=== PATIENT | female | born 1985 | race Caucasian/White ===

== ENCOUNTER 2019-07-05 09:55 | Inpatient (IN) | payer OTHER, SELFPAY ==
[2019-07-05] VITALS (51 sets, daily range): BP systolic 98–138; BP diastolic 53–86; PULSE 56–126; RESP 12–18; TEMP 36.2–36.7; O2SAT 94–100; BMI 32.6
--- NOTE | 2019-07-05 06:49 | HP_ITS ---
DATE OF SERVICE: 07/05/2019 HISTORY OF PRESENT ILLNESS: The patient is 33 years old, G2, P0-1-0-2, at 39 weeks gestation coming in for an elective repeat and tubal ligation. Her has been uncomplicated. She is feeling normal movement, occasional contractions, no vaginal bleeding, and no leakage of fluid. MEDICAL HISTORY: Negative. CURRENT MEDICATIONS: vitamin and recently was on baby aspirin. ALLERGIES: NO KNOWN DRUG ALLERGIES. SURGICAL HISTORY: x1. SOCIAL HISTORY: Negative for tobacco, alcohol, or drug use. 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 OB HISTORY: She had at 32 weeks with twins due to preeclampsia and those babies weighed 3.6 and 3.9 and were both girls. REVIEW OF SYSTEMS: Negative. PHYSICAL EXAMINATION: VITAL SIGNS: Her weight is 196, blood pressure 118/79. GENERAL: No apparent distress. HEART: Regular rate and rhythm. LUNGS: Clear to auscultation. ABDOMEN: Gravid, soft, nontender, nondistended. EXTREMITIES: Nontender with 1+ edema. PELVIS: Cervix on July 02 is close, thick, -3 station. ASSESSMENT AND PLAN: 1. G2, P0-1-0-2, at 39 weeks gestation with history of prior . She has expressed a desire throughout her for repeat . So, plan is to proceed with repeat . 2. status is reassuring. 3. Desires sterilization, we are planning to do a tubal ligation along with her . 4. GBS is negative. D I MT: Yanely
--- NOTE | 2019-07-05 10:25 | LDADM ---
This patient, Jacquie Morales, was admitted to Labor/Delivery/Recovery 119 on 07/05/19 at 09:55. Plans for labor, pain management and were discussed with patient. Patient/family oriented to hospital policies and general routines including ID bracelet, bed and alarms, visiting hours, pain management, procedures, bathroom and other care routines, personal items, smoking policy, room service/diet and guest tray routines, security routines, and visiting hours. Patient/Family are encouraged to report perceived risks to care and to ask questions if they do not understand what they are told or what they should do. See OBIX for further documentation.
[2019-07-05] MEDS: LACTATED RINGERS 1,000 ML 999 ML IV CONT (10:45)
--- NOTE | 2019-07-05 11:48 | WPDANESEPPF ---
Anes - Initial Pre Proc Eval Procedure: Operation Date: 07/05/19 12:00 Proposed Procedures p Repeat Section with Tubal Ligation - Graciela Mcgovern MD Date/Time: 07/05/19 11:48 Surgeon: Graciela Mcgovern MD Pre Op Diagnosis: scheduled c/s Patient Data Age: 33 Gender: F Height: 5 ft 5 in Weight: 89 kg Last Vital Signs Pulse 78 07/05/19 10:48 BP 122/82 07/05/19 10:48 Allergies Allergy/AdvReac Type Severity Reaction Status Date / Time No Known Allergies Allergy Unverified 01/10/12 15:10 Home Medications Medication Instructions Recorded Confirmed Type aspirin [Adult Low Dose Aspirin] 81 mg PO DAILY 06/12/19 06/12/19 History [id number] acid 1 tablet PO DAILY 06/12/19 06/12/19 History [ Multi] Patient hx anesthesia problems: none Family hx anesthesia problems: none PMFSH Family History Family History Mother Family history of malignant neoplasm of breast in first degree relative Hypertension Family history of elevated blood lipids Social History Social History Smoking status: Never smoker Alcohol intake: current Gender identity (if verbalized by the patient): Female Spiritual care concerns: No Anes - Eval Final PreProcedure Day of Procedure 07/05/19 11:48 Patient weight: overweight Heart: regular rate and rhythm Lungs: clear to auscultation Airway: Mallampati scale class II Neurological: alert and oriented Last oral intake: >/= 8 hours ASA classification: II Emergent: no Anesthetic plan: proceed Anesthesia type and monitoring: regional spinal and standard monitoring Informed Consent: The patient's anesthetic plan and its attendant risks and benefits were discussed with the patient/family/POA. Questions were solicited and answers provided to the satisfaction of the patient/family/POA.
--- NOTE | 2019-07-05 12:03 | WPDHPUPDATE1 ---
History and Physical Update Update Date/Time: 07/05/19 12:03 History and Physical has been reviewed, including an updated exam of the patient. There are NO changes in the patient's condition. Risks, benefits, and alternatives have been discussed and questions answered. Patient agrees to proceed with procedure.
--- NOTE | 2019-07-05 12:08 | PM.OP ---
Procedure Note - Brief Procedure Note - Brief Date of procedure: 07/05/19 Pre-op diagnosis: scheduled c/s desires sterilization Post-op diagnosis: same Procedure performed: Repeat LTCS + BTL Anesthesia: spinal Surgeon: Graciela cMgovern MD Estimated blood loss (mL): 615 Drains: Yes ([place]) Packing: No Pathology: none sent Complications: No immediate complications Condition: stable Disposition: floor Findings: Male , cephalic, Apgars 9/9, weight 8# 2oz, normal uterus, tubes, and ovaries
[2019-07-05] MEDS: ONDANSETRON INJ 4 MG/2 ML VIAL IV PUSH ×2 (15:44→18:28)
--- NOTE | 2019-07-05 17:25 | OP_ITS ---
DATE OF PROCEDURE: 07/05/2019 PREOPERATIVE DIAGNOSES: Intrauterine at 39 weeks with prior section, desires sterilization. POSTOPERATIVE DIAGNOSES: Intrauterine at 39 weeks with prior section, desires sterilization. PROCEDURE PERFORMED: Repeat low transverse section and bilateral tubal ligation. ANESTHESIA: Spinal. ESTIMATED BLOOD LOSS: 615 mL. COMPLICATIONS: None. FINDINGS: Male infant, cephalic presentation, weight 8 pounds 2 ounces. Apgars 9 and 9. Normal uterus, tubes, and ovaries. INDICATIONS: 33-year-old, G2, P 0-1-0-2 at 39 weeks gestation, had expressed a desire throughout her for repeat as well as tubal ligation and continued desire for both procedures today. DESCRIPTION OF PROCEDURE: For the procedure, she was taken to the operating room where spinal anesthesia was obtained and found to be adequate. She was prepared and draped in the normal sterile fashion in the dorsal supine position with a leftward tilt. A Pfannenstiel skin incision was made over her prior incision and extended to the underlying layer of fascia with the scalpel. The fascia was incised in the midline with a scalpel and extended laterally with the Gan scissors. The underlying rectus muscles were dissected off bluntly and sharply and in the midline. The peritoneum was entered bluntly and then extended inferiorly and superiorly with good visualization of the bladder. The bladder blade was inserted. The vesicouterine peritoneum was tented up and entered sharply with Metzenbaum scissors and the bladder flap was created sharply. The bladder blade was reinserted. The lower uterine segment was incised in a transverse fashion with the scalpel. The incision was digitally stretched in a cephalocaudad direction. Membranes were ruptured with clear fluid noted. The infant's head was delivered atraumatically, and the shoulders and body were delivered easily. The cord was clamped x2 and cut, and the infant was passed to the waiting nurse. Cord gas and cord blood were obtained. The placenta was extracted using gentle traction on the cord. The uterus did invert and was easily replaced by placing fist on the inverted portion and pushing that back inside the uterus. Her uterus was boggy for a minute or so, but did respond quickly to Pitocin. The uterine incision was then closed using 0 Vicryl in a running locked fashion. A 2nd layer of the same suture was used for hemostasis and reinforcement. Attention was then turned to the fallopian tubes. The right fallopian tube was grasped in the mid isthmic portion. A defect was made in the underlying mesosalpinx with the Bovie. Two free ties of 0 plain gut were placed and then the intervening segment of tube was excised. The same procedure was performed on the left fallopian tube. Excellent hemostasis was assured. The uterine incision was reinspected and found to be hemostatic. The uterus was returned to the abdomen. The gutters were cleared of all clots and debris. The uterine incision was inspected once again. There were couple of bleeding points, which were easily controlled using 0 Vicryl evaafe-oj-gvxvo sutures. The rectus muscles were reapproximated using a 0 Vicryl scywnx-al-fvvef suture. The rectus muscles were inspected. Any bleeding points were cauterized. The fascia was then closed using 0 Vicryl in a running fashion. The subcutaneous tissue was irrigated. All bleeding points were cauterized and the skin was closed using 4-0 Monocryl in subcuticular fashion. She tolerated the procedure well. Sponge, lap, needle, and instrument counts were correct x2, and she was taken to the recovery room in stable condition. Fiona I MT: Yanely
--- NOTE | 2019-07-05 18:18 | OBPPTRN ---
Patient transferred to post room #280 via stretcher. Support person present. Oriented to unit, room, information board, rooming in, admission packet and security measures. Patient verbalizes understanding.
[2019-07-05] MEDS: DEXTROSE 5%/0.45% SOD CHL 1,000 ML 125 ML IV CONT (21:07)
[2019-07-05] MEDS: SIMETHICONE 80 MG TAB.CHEW PO (23:28)
[2019-07-06] MEDS: IBUPROFEN 600 MG TABLET PO ×4 (01:30→22:23)
[2019-07-06 04:10] VITALS: BP 94/53; PULSE 68; RESP 16; TEMP 36.3; O2SAT 99
[2019-07-06 04:55] LABS: Basophils Percent Auto 0.1 % (0.2-1.2); Eosinophils Percent Auto 0.2 % (0-4.4); Hematocrit 30.9 % (37.0-47.0); Hemoglobin 10.5 g/dL (12.0-15.0); Immature Granulocyte Absolute 0.05 K/mm3 (0.00-0.031); Immature Granulocyte Percent A 0.5 % (0-0.5); Lymphocytes Absolute Auto 0.83 K/mm3 (0.9-3.2); Lymphocytes Percent Auto 7.6 % (18.3-44.2); Mean Corpuscular Hemoglobin 31.7 pg (26-34); Mean Corpuscular Volume 93.4 fl (80-100); Mean Platelet Volume 9.4 fl (7.4-10.4); Monocytes Absolute Auto 0.8 K/mm3 (0.1-0.6); Monocytes Percent Auto 7.2 % (2.6-8.5); Neutrophils Absolute Auto 9.2 K/mm3 (1.3-6.7); Neutrophils Percent Auto 84.4 % (45.5-73.1); Platelet Count Result 124 k/mm3 (150-375); Red Blood Count 3.31 M/mm3 (4.2-5.4); Red Cell Distribution Width 12.5 % (11.5-14.5); White Blood Count 10.9 K/mm3 (4.5-10.0)
[2019-07-06 08:00] VITALS: BP 123/81; PULSE 72; RESP 18; TEMP 37.4; O2SAT 99
--- NOTE | 2019-07-06 08:01 | P.PNOB_ITS ---
OB - PN: Subj Subjective Date/time seen: 07/06/19 08:01 Patient comments: no complaints, pain well controlled, incisional pain, tolerating diet, flatus present and other (Lochia similar to menses) baby status: doing well OB - PN: Obj Data Labs CBC & Chem 7: 07/06/19 04:37 Labs: Laboratory Results - last 24 hr 07/06/19 04:37 WBC 10.9 H RBC 3.31 L Hgb 10.5 L Hct 30.9 L MCV 93.4 MCH 31.7 MCHC 34.0 RDW 12.5 Plt Count 124 L MPV 9.4 Immature Gran % (Auto) 0.5 Neut % (Auto) 84.4 H Lymph % (Auto) 7.6 L [place] % (Auto) 7.2 Eos % (Auto) 0.2 Baso % (Auto) 0.1 L Lymph # (Auto) 0.83 L [place] # (Auto) 0.8 H Eos # (Auto) 0.0 Baso # (Auto) 0.0 Abs Immat Gran (auto) 0.05 H Absolute Neuts (auto) 9.2 H Absolute Nucleated RBC 0.0 Nucleated RBC % 0.0 OB - PN A/P Plan day: 1 (s/p C section, doing well) Plan: routine care Time Spent With Patient Time: Total time spent is greater than 50% in coordination of care (as docu mented) at patient's floor/unit and/or counseling patient: Exam Const: General: no acute distress Resp: Auscultation: clear to auscultation bilaterally Cardio: Rate: regular rate Rhythm: regular rhythm GI: Inspection: non-distended, incision (Intact without erythema, drainage, or induration) and other (Fundus firm and nontender at umbilicus) GI Palp: Yes abdominal tenderness (appropriate ) and Yes Soft to palpation Extrem: General: no edema
[2019-07-06] MEDS: SIMETHICONE 80 MG TAB.CHEW PO ×5 (08:35→22:24)
[2019-07-06] MEDS: DOCUSATE SODIUM 100 MG CAPSULE PO ×2 (08:35→15:26)
[2019-07-06] MEDS: MULTIVIT/MIN/PREN/FOL AC/IRON TABLET 1 TAB PO (08:35)
--- NOTE | 2019-07-06 09:30 | WPDANLDPN2 ---
Anes-Prog Note L&D Date/Time: 07/06/19 09:30 Comfortable throughout: section Neuraxial method: spinal Epidural/Spinal procedure site: clean & non-tender Neuro status: Neuro function grossly intact. Cardiovascular status: normal Respiratory status: normal Airway patency: baseline Mental status: baseline Post-Op hydration status: normal Vital Signs: Last Vital Signs Temp 37.4 C 07/06/19 08:00 Pulse 72 07/06/19 08:00 Resp 18 07/06/19 08:00 BP 123/81 07/06/19 08:00 Pulse Ox 99 07/06/19 08:00 I/O: Intake & Output 07/05/19 07/06/19 07/06/19 23:59 07:59 15:59 Intake Total 1300 1125 Output Total 1825 800 Balance -525 325 Post-procedural complaints: none Patient feedback: Patient satisfied with anesthetic care.
--- NOTE | 2019-07-06 09:30 | WPDANLDNPN2 ---
Anes-Prog Note L&D-Neuraxial Date/Time: 07/06/19 09:30 Neuraxial medications: intrathecal PF morphine Opiod-related complaints: none Patient feedback: Patient satisfied with post-operative pain management.
[2019-07-06 11:40] VITALS: BP 106/71; PULSE 69; RESP 18; TEMP 36.4; O2SAT 97
[2019-07-06 21:00] VITALS: BP 130/72; PULSE 65; RESP 16; TEMP 36.2; O2SAT 100
[2019-07-07] MEDS: SIMETHICONE 80 MG TAB.CHEW PO ×6 (00:30→23:20)
--- NOTE | 2019-07-07 07:26 | PM.OBPNVD ---
OB - PN: Subj Subjective Date/time seen: 07/07/19 07:26 OB - PN: Obj Data Labs CBC & Chem 7: 07/06/19 04:37 OB - PN A/P Time Spent With Patient Time: Total time spent is greater than 50% in coordination of care (as documented) at patient's floor/unit and/or counseling patient: Review of Systems Review of Systems: All systems reviewed & are unremarkable except as noted in HPI and below Exam Const: General: comfortable Psych: Appearance: grossly normal Affect: normal affect Attitude: cooperative Judgement: Good judgement present (Psych)
[2019-07-07 09:00] VITALS: BP 127/87; PULSE 74; RESP 18; TEMP 36.2; O2SAT 100
[2019-07-07] MEDS: DOCUSATE SODIUM 100 MG CAPSULE PO (09:00)
[2019-07-07] MEDS: MULTIVIT/MIN/PREN/FOL AC/IRON TABLET 1 TAB PO (09:00)
[2019-07-07] MEDS: IBUPROFEN 600 MG TABLET PO ×3 (09:01→23:21)
--- NOTE | 2019-07-07 10:51 | PC.NURSE ---
On 07/07/19, the student, [SN Ric ], provided care and completed [facility] documentation on this patient. I have reviewed the student's documentation and agree with the findings.
--- NOTE | 2019-07-07 14:48 | PC.NURSE ---
Patient viewed the discharge video Mother & Baby Care, The First Two Weeks . Patient was given the opportunity and encouraged to ask questions. Patient verbalized understanding of information shared and has been given the mother/baby guide for home reference.
[2019-07-07 20:15] VITALS: BP 121/81; PULSE 78; RESP 16; TEMP 37.1; O2SAT 100
[2019-07-08 07:20] VITALS: BP 119/78; PULSE 76; RESP 16; TEMP 36.9; O2SAT 100
--- NOTE | 2019-07-08 07:49 | PM.OBPNVD ---
OB - PN: Subj Subjective Date/time seen: 07/08/19 07:49 Patient comments: no complaints, pain well controlled, tolerating diet, flatus present and other (Lochia less than menses. Ambulating and voiding without problems) baby status: doing well OB - PN: Obj Data Labs CBC & Chem 7: 07/06/19 04:37 OB - PN A/P Plan day: 3 (s/p section, doing well and ready to be discharged home) Plan: routine care, discharge home and other (Follow up in office in 1 week) Time Spent With Patient Time: Total time spent is greater than 50% in coordination of care (as documented) at patient's floor/unit and/or counseling patient: Exam Const: General: no acute distress Resp: Auscultation: clear to auscultation bilaterally Cardio: Rate: regular rate Rhythm: regular rhythm GI: Inspection: non-distended, incision (Intact without erythema, drainage, or induration) and other (Fundus firm and nontender below umbilicus) GI Palp: Yes abdominal tenderness (appropriate) and Yes Soft to palpation Extrem: General: no edema
[2019-07-08] MEDS: SIMETHICONE 80 MG TAB.CHEW PO (07:58)
[2019-07-08] MEDS: IBUPROFEN 600 MG TABLET PO (07:59)
[2019-07-08] MEDS: MULTIVIT/MIN/PREN/FOL AC/IRON TABLET 1 TAB PO (07:59)
[2019-07-08] MEDS: DOCUSATE SODIUM 100 MG CAPSULE PO (08:00)
--- NOTE | 2019-07-08 11:00 | PC.NURSE ---
Mother is able to independently latch infant with appropriate positioning/alignment. She denies any nipple discomfort, is feeding as required and waking to feed if needed. has had 8 effective feedings in the past 24 hours, and is currently meeting outcomes for weight, output, jaundice and feeding frequencies. Mother states she feels confident to continue effective at home. Reviewed transition to breast milk, signs of adequate intake, and engorgement/relief. Instructed to call ICP if intake/output less than required. Reviewed regular medications mother is taking. Information provided per [facility]. Reviewed community resources on the [facility] website and in the Mom/Baby guide. Information on outpatient services provided. Mother has no further questions at this time.
--- NOTE | 2019-07-08 18:24 | DS_ITS ---
DATE OF DISCHARGE: 07/08/2019 ADMISSION DIAGNOSES: Thirty-nine week intrauterine with history of prior and desires sterilization. DISCHARGE DIAGNOSES: Status post repeat low-transverse section and bilateral tubal ligation. DISCHARGE MEDICATIONS: Include vitamin, ibuprofen, and [place]. FOLLOWUP: Followup appointment is already scheduled in the office for the following Friday. HOSPITAL COURSE: A 33-year-old, G2, P0-1-0-2, who had a history of a due to preeclampsia with twins, had expressed a desire throughout her for repeat and tubal ligation. She was admitted on the morning of July 05 for the scheduled , which was uneventful. Her postoperative course has also been uneventful. She is meeting all postoperative milestones. She is . Her male is doing well with no medical problems apparent, and she is wanting to be discharged home today, so she will be sent home with the followup and medications as noted above. Fiona I MT: Yanely
== END 2019-07-08 12:21 | disposition home or self-care (01) | DRG 785 ==
LOC: ANHLDR 09:59 → ANHOB2 15:56
PROVIDERS: Admitting Provider Obstetrics & Gynecology; PCP Family Medicine; Visit Provider Obstetrics & Gynecology
PROC: 10D00Z1 Extraction of Products of Conception, Low, Open Approach (ICD-10-PCS; CPT 59514; principal; 2019-07-05 12:00)
DX: O34.211 Maternal care for low transverse scar from previous cesarean delivery (principal); Z37.0 Single live birth; Z3A.39 39 weeks gestation of pregnancy; Z30.2 Encounter for sterilization
CPT/HCPCS: 36415; 85025; 88302; A9270; J0131; J2274; J2370; J2405; J2590; J7120

== ENCOUNTER 2025-03-03 15:27 | Outpatient (CLI) | payer OTHER, SELFPAY ==
[2025-03-03 16:31] LABS: Thyroid Stimulating Hormone Reflex 1.270 uIU/mL (0.465-4.68)
--- OUTSIDE RECORDS SUMMARY | 2025-03-03 17:34 | XMS_ITS | Data Portability ---
Author Organization [place] [facility] [address] [place] [address] Assessment Encounter Date Assessment Date Assessment LastModified by Organization Details LastModified Time 07/03/2023 07/03/2023 plantar wart left foot Discussed etiology with patient-and treatment options such as chemical burning freezing and excision Patient opted for excision please see procedure note -Dressing changes daily with 2 fibrotic and Band-Aid patient made aware that the first few days up to a week can have heavier type bleeding -Patient instructed to watch for signs of infection such as increased pain purulent drainage redness swelling malodor. If these occur to call clinic immediately No pools or hot tubs x 2 weeks Activity as tolerated however-cleanin g the area following any exercise/ heavy perspiration -Return to clinic in 2 weeks Not available 07/03/2023 12:51:48 07/17/2023 07/17/2023 Plantar wart left - Excision sites healing as expected -No lesion present to area after debridement - Allow any remaining scab to fall off naturally - Discontinue dressing changes - Activity as tolerated -Patient is going on vacation in a week and a half and would like to wait to have any intervention to the new wart on the left hallux -Patient will schedule excision of the L1 warts when she is back from her trip Not available 07/17/2023 12:33:28 Plan of Treatment Reminders Order Date Submit Date Provider Last Modified By Organization Details Last Modified Time Details Appointments None record ed. Lab None record ed. Referral None record ed. Procedures None record ed. Surgeries None record ed. Imaging None record ed. Medication Orders None record ed. Patient TargetsNo targets recorded. Patient InstructionsNo instructions recorded. Reason for Referral None Reported. Results Created Date Observation Date Name Description Value Unit Range Abnormal Flag Note LastModifiedBy Organization Detail LastModifiedTime Result Notes None recorded. Procedures Surgical History Date Name Laterality Status Provider Name and Address Organization Details Recorded Time 26188/46887 Excision of Wart completed Robret Foreman [facility] [place], [phone] 07/03/2023 12:47:37 section completed Patience Espinal [facility] 07/03/2023 12:09:08 Imaging Results None recorded. Procedure Notes None recorded. Medical Equipment None Reported. Allergies No known drug allergies Medications Name Sig Start Date Stop Date Status Note LastModified by Organization Details LastModified Time amoxicillin 500 mg capsule TAKE 1 CAPSULE BY MOUTH TWICE A DAY FOR 10 DAYS 07/11 completed Not Available Not Available Not Available doxycycline hyclate 100 mg capsule TAKE 1 CAPSULE BY MOUTH TWICE A DAY FOR 7 DAYS active Not Available Not Available No t Available Slynd 4 mg (28) tablet TAKE 1 TABLET BY MOUTH EVERY DAY 07/11 completed Not Available Not Available Not Available Vitals Date Recorded Body height Provider Name an d Address Organization Details Last Updated DateTime 07/03/2023 165.1 cm Patience Espinal [facility] 07/03/2023 12:08:12 Date Recorded Body height Body mass index (BMI) Body weight Provider Name and Address Organization Details Last Updated DateTime 07/17/2023 165.1 cm 30 kg/m2 57004.63 g Zena Vail [facility] 07/17/2023 11:29:33 Social History Question Answer Notes LastModified by Organizat ion Details LastModified Time Tobacco Smoking Status Never Smoker Patience Espinal alessia [facility] 07/03/2023 12:08:47 Size Of Shoes 10 Information not available 07/03/2023 Sex: Unknown Functional Status Question Answer Note LastModified by Organizat ion Details LastModified Time Do you use any illicit or recreational drugs? No [email or web address] Information not available 07/17/2023 Do you or have you ever used any other forms of tobacco or nicotine? No [email or web address] Information not available 07/17/2023 What is your level of alcohol consumption? Moderate Information not available 07/03/2023 What is your exercise level? None Information not available 07/03/2023 Mental Status None recorded. Family History Relationship Description Onset Age of this Age Resolved Age Notes LastModified by Organization Details LastModified Time Mother Malignant neoplastic disease Not available 2023 12:08:37 Medical History Condition Response Tuberculosis or TB N Heart Problems N Ulcers on Legs or Feet N Coronary Artery Disease N HIV or AIDS N Seizure Disorder N Gout N High Blood Pressure N Clot in Lung or Pulmonary Embolism N Menopause N Lung Condition N Phlebitis or Venous Blood Clot N Migraines N Depression N Pacemaker N Anemia N Back Pain N Neurologic Disease N Sciatica N Heart Attack ([place]) N Diabetes N Urinary Tract Infections N Anxiety Disorder N Bleeding Disorder N Arthritis N Abuse of Alcohol or Drugs N Back injury N Ear Problems N Cancer N Dementia N Eye Problems N Stroke N Stomach Problems N Peripheral Vascular Disease N Sinus Conditions N Broken Bone N Thyroid Disorder N High Cholesterol N Hepatitis N Liver Disease N Heart Disease N Rheumatoid Arthritis N Rash N Osteoporosis N Kidney Disease N Gynecological HistoryNo gynecological history recorded. Obstetrics History GPAL:G 0 P 0 0 0 0 Past Encounters Encounter ID Performer Location Encounter Start Date Encounter Closed Date Diagnosis/Indication Diagnosis SNOMED-CT Code Diagnosis ICD10 Code Diagnosis IMO Codes [facility] [id number] [facility] [address] [place] [address] 5 07/03/2023 11:48:09 07/03/2023 12:23:36 Plantar wart of left foot [id number] B07.0 [id number] [facility] [address] [place] [address] 07/17/2023 11:22:48 07/17/2023 11:40:49 Plantar wart of left foot [id number] B07.0 Health Concerns Section Related Observation LastModified by Organization Detai ls LastModified Time None Recorded Concern Status LastModified by Organization Details LastModified Time None Recorded Advance Directives Directive None Recorded Payers Insurance Date Sequence Insurance Name Policy Number Policy Vyas Covered Member ID Vyas Member ID Guarantor Name 07/14/2023 1 [facility] Jacquie Morales [id number] Jacquie Morales Notes Date Note Type Note Provider Name and Address Organization Details Recorded Time 07/03/2023 text/html Wart--Reported b y PatientHPIFor location, patient reportsfoot,left, andplantar. For nature, patient reportsstabbingandsha rp. For duration, patient reports___ weeksand___ months. For onset, patient reportsnoticed a small bump but has been staying the same. For alleviating factors, patient reportsnot putting pressure on itandbandaids(pt came to clinic with wart pads that helped alleviate pain). For aggravating factors, patient reportspressure. For treatment, patient reportsusing 's wart remover,picking at it at home, andfiling it. Robert Foreman [address] [place] [address], [phone] [place] [address] 07/03/2023 12:52:23 07/17/2023 text/html Wart--Reported b y PatientHPIFor location, patient reportsfoot,left, andplantar. For nature, patient reportsstabbingandsha rp. For duration, patient reports___ weeksand___ months. For onset, patient reportsnoticed a small bump but has been staying the same. For alleviating factors, patient reportsnot putting pressure on itandbandaids(pt came to clinic with wart pads that helped alleviate pain). For aggravating factors, patient reportspressure. For treatment, patient reportsusing 's wart remover,picking at it at home, andfiling it.patient indicates she has a new wart that formed on her L1. Wart removal 2 weeks ago. Patient did have a complication with infection to the midfoot region however we will prescribe antibiotics and this is resolved at this time she states does not have any pain and the wounds are closed Robert sienna [address] [place] [address], [phone] 07/17/2023 12:33:54 OBGyn Episode No OBEpisode recorded.
--- OUTSIDE RECORDS SUMMARY | 2025-03-03 17:34 | XMS_ITS | Clinical Summary ---
Author Organization [facility] Address [address] [place] [id number] Care Team Providers Care Waistline Joiner Overlock Name Role Phone Demetrio Lee MD Unavailable [phone] Ryan Frost MD Primary Care Provider [phone] Allergies No known active allergies Medications aspirin 81 mg chewable tablet Take 81 mg by mouth daily Active PNV no.95/ferrous fum/folic ac ( ORAL)Indication s: Take 1 tablet by mouth daily Active mv,calcium,min/ iron/folic/vitK (ONE-A-DAY WOMEN'S COMPLETE ORAL) Take 1 capsule by mouth daily Active Active Problems Problem Noted Date Diagnosed Date Abnormal quad screen 01/29/2019 Overview (01/29/2019): 01/22/2019 Screen positive for Open Spina bifida, negative for Down syndrome, negative for Trisomy 18 Supervision of high-risk , unspecified trimester 01/29/2019 Overview (02/16/2019): [x] Co-management vs. [] Full [facility] Care; Referring Provider: Demetrio Lee MD [phone] [] Dating Criteria: [x] Labs: Rh [A+] , Ab [neg], Rubella [Imm], HIV [NR], HepBSAg [neg], RPR [NR], GC/CT [neg/neg] [x] Genetic Screening: Carrier Screening 12/21/18: negative. Sequential 1 12/21/18: Down Syndrome <1 in [address]; Trisomy 18 <1 in [address]. Sequential 2 01/22/19: Screen positive for open spina bifida; screen negative for down syndrome, screen negative for trisomy 18 [x] CBC/Hgb electrophoresis (if indicated) H/H [12/22/18] 34.9/12.0, plat 223 [] Early 1hr GTT (if indicated) [x] UCx 12/21/18 no growth [x] Pap: 04/17/18 negative [] LD ASA (if indicated) starting at 12 weeks [] EPDS ; PNB[facility] referral (if indicated) 2nd Tri Labs: [] Anatomy ultrasound [] CBC/1hr gtt at 24-28wks: [] Flu Shot (Feb-May) [] Tdap (27-36wks) [] Rhogam at 28 wks (if Rh neg): 3rd Tri Labs: [] CBC/HIV/RPR/T&S [] GBS [] GC/CT (if indicated) Counselling [] MOD: [] Place of delivery: [] MOC: [x] Method of feeding: [] Copy Lathe Operator: [] PP Depression Discussed, EPDS History of abnormal cervical Pap smear 9 Hx of preeclampsia, prior pr egnancy, currently , unspecified trimester 01/29/2019 Overview (01/29/2019): - taking baby ASA Resolved Problems Problem Noted Date Diagnosed Date Resolved Date , twins 06/16/2014 01/29/2019 Surgical History Surgery Date Site/Laterality Comments SECTION Medical History Medical History Date Comments Preeclampsia Abnormal Pap smear of cervix Family History Medical History Relation Name Comments Breast cancer Mother Bipolar disorder Other Breast cancer Other Hypertension Other Breast cancer Paternal Grandmother Relation Name Status Comments Mother Other Paternal Grandmother Social History Tobacco Use Types Packs/Day Years Used Date Smoking Tobacco: Never Smokeless Tobacco: Never Tobacco Cessation:Counseling Given: Not Answered Alcohol Use Standard Drinks/Week Comments Not Currently 0 (1 standard drink = 0.6 oz pur e alcohol) Comments No Sex and Gender Information Value Date Recorded Sex Assigned at Not on file 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 Gender Identity Female 02/19/2019 9:30 AM CDT Sexual Orientation Not on file Occupation Industry Job Start Date Job End Date Not on file Not on file Not on file Not on file Obstetrics History Para Term AB IAB SAB Ectopic Multiple Livin g Live Births 2 1 0 1 0 0 0 0 1 2 2 Date Outcome GA Total Labor Labor/2nd/3rd Weight Sex Type Anes PTL Lorraine A1 A5 Name Clin 2014 32w 0d 1.531 kg (3 lb 6 oz) F CS-LT ranv N Living Complications:Pre eclampsia 2014 32w 0d 1.616 kg (3 lb 9 oz) F CS-LT ranv N Living Complications:Pre eclampsia Last Filed Vital Signs Vital Sign Reading Time Taken Comments Blood Pressure 122/68 08/19/2022 5:21 PM CDT Pulse 88 08/19/2022 5:21 PM CDT Temperature 36.2 C (97.1 F) 08/19/2022 5:21 PM CDT Respiratory Rate 19 08/19/2022 5:21 PM CDT Oxygen Saturation 100% 08/19/2022 5:21 PM CDT Inhaled Oxygen Concentration - - Weight 89.5 kg (197 lb 6.4 oz) 08/19/2022 5:21 P M CDT Height 165.1 cm (5' 5) 08/19/2022 5:21 PM CDT Body Mass Index 32.85 08/19/2022 5:21 PM CDT Plan of Treatment Health Maintenance Due Date Last Done Comments Cervical Cancer Screening 1986 Depression Screening 1986 Hepatitis C Screening 1986 Varicella Vaccines (1 of 2 - 13+ 2-dose series) 10/30/1999 Hepatitis B Screening 2004 Regular Well Visit/Exam 18-64 2004 HPV Vaccines (1 - 3-dose SCD M series) 2013 DTaP/Tdap/Td Vaccine (2 - Td or Tdap) 09/27/2024 09/27/2014 Covid-19 Vaccine (3 - 2024-2 6 season) 2025 07/26/2020, 07/06/2020 Influenza Vaccine (#1) 2025 2, 03/14/2021 Pneumococcal vaccine <65 Aged Out No longer eligible based on patient's age to complete this topic Insurance [facility] Address: [address] [address] [place] [address] [facility] Address: [address] [address] [place] [address] [facility]O Address: [address] [address] [place] [address] Care Teams Waistline Joiner Overlock Relationship Specialty Start Date End Date Ryan Frost MD [address] [place] [address] PCP - General Family Medicine 04/22/22 Demetrio Lee MD [address] [place] [address] Referring Physician Obstetrics and Gynecology 01/27/19
== END 2025-03-03 15:28 | disposition home or self-care (01) ==
LOC: ANHLAB 15:28
PROVIDERS: PCP Family Medicine; Visit Provider Nurse Practitioner Obstetrics & Gynecology
DX: N93.9 Abnormal uterine and vaginal bleeding, unspecified (principal)
CPT/HCPCS: 36415; 84443

== ENCOUNTER 2025-03-23 13:21 | Outpatient (CLI) | payer OTHER, SELFPAY ==
--- NOTE | ~2025-03-23 | US_ITS ---
EXAMINATION: US pelvic complete w TV, 03/23/2025 13:23 CDT HISTORY: N93.9 - Abnormal uterine and vaginal bleeding, unspecified Comparison: None Technique: Green-scale and color Doppler images were obtained. Findings: Uterus: Uterus anteverted 8.4 x 4.2 x 6.7 cm. . Endometrium 1.4 cm. Right Ovary:Right ovary 2.7 x 3.6 x 2.7 cm, no adnexal mass, normal flow. Left Ovary: Left ovary 3.2 x 1.4 x 2.5 cm, no adnexal mass, normal flow. Free Fluid: None Impression: 1. No etiology to explain the patient's symptoms Reviewed, dictated and finalized at location P. Impression: 1. No etiology to explain the patient's symptoms
== END 2025-03-23 13:22 | disposition home or self-care (01) ==
LOC: MICIMG 13:22
PROVIDERS: PCP Family Medicine; Visit Provider Nurse Practitioner Obstetrics & Gynecology
DX: N93.9 Abnormal uterine and vaginal bleeding, unspecified (principal)
CPT/HCPCS: 76830; 76856

== ENCOUNTER 2025-05-25 03:44 | Day surgery (SDC) | payer OTHER, SELFPAY ==
[2025-05-23 06:50] VITALS: BP 147/93; PULSE 88; RESP 16; TEMP 36.5; O2SAT 98
--- NOTE | 2025-05-23 08:00 | SUR.PREOP ---
[facility] has started construction of its new state of the art ER which will open Spring 2026. With this, we anticipate parking may be a challenge for some our surgical patients and families. Parking spaces are limited but are available for all Surgical, obstetrics, and ER patients sharing this lot. If you arrive and find you are having a hard time finding a parking space, please note that we understand the challenges, please drive around the hospital and park near Hospital Entrance 1. When you enter this entrance, you can ask a volunteer to direct or take you back to the surgical waiting area to check in. We appreciate everyone?s understanding of these expected challenges while we build for your future. Report to the Outpatient Waiting Room, entrance under the green pavilion located off [address], at time _0600_ on date _05/25/25_. Planned Procedure Time: _0730_.? Time changes happen often and if your time is changed the preop area will call you the afternoon before. - You and your visitor will be asked to self-screen and do not enter if you have any COVID symptoms. Please call surgeon if you need to reschedule. - A mask is optional within the hospital at this time. Patients may have clear liquids (water, carbonated beverages, clear teas, apple juice) until 3 hours (0430) prior to surgery with a maximum of 20 ounces. - No food from midnight until time of surgery and no smoking, or chewing tobacco (or any form of nicotine). No chewing gum, candy or mints. Take only the following medications with a SIP of water on the morning of surgery: _NA_ DO NOT STOP ANY OF YOUR OTHER PRESCRIPTION MEDICATIONS PRIOR TO SURGERY EXCEPT THE FOLLOWING Hold all vitamins and supplements for 3 days per anesthesiologist. Medications to discontinue per physician __NA__ Date to take last dose_NA_ Please no make-up, nail arabic, hairspray, perfume, deodorant, or body powder the day of surgery.? No jewelry (including any body piercings) or valuables the day of surgery, leave them at home.? Please take a shower or bath the night before, or the morning of, surgery with an antibacterial soap.? Wear comfortable, loose fitting clothing.? - Jewelry must be removed prior to entering the operating room.? Rings and piercings that are not removed may be cut off. - The hospital will not accept responsibility for valuables.? - Please leave all valuables, including medications, at home the day of surgery. If you are going home after surgery, a licensed front end driver must drive you home.? - NO public transportation without another adult if you receive anesthesia. - We recommend that an adult stay with you for 24 hours following discharge. - We also recommend that you do not drive, make important decision, drink alcoholic beverages, or take any drugs that were not prescribed by your health care provider for at least 24 hours after your discharge time. Follow any additional instructions given to you from your surgeon. Telephone instructions given to _JULIO_and asked if any additional questions and then verbalized understanding. Patient advised to call surgeon office or pre surgery nurse liaison [phone] if any additional questions.
[2025-05-23 08:07] VITALS: BMI 33.3
--- OUTSIDE RECORDS SUMMARY | 2025-05-25 03:46 | XMS_ITS | Clinical Summary ---
Author Organization [facility] Address [address] [place] [id number] Care Team Providers Care Grocery Store Bagger Name Role Phone Demetrio Lee MD Unavailable [phone] Ryan Frost MD Primary Care Provider [phone] Allergies No known active allergies Medications aspirin [...] Overview (02/16/2019): [x] Co-management vs. [] Full [facility] Care; Referring Provider: Demetrio Lee MD [phone] [] Dating Criteria: [x] Labs: Rh [A+] , Ab [neg], Rubella [Imm], HIV [NR], HepBSAg [neg], RPR [NR], GC/CT [neg/neg] [x] Genetic Screening: Carrier Screening 12/21/18: negative. Sequential 1 12/21/18: Down Syndrome <1 [place] [address]; Trisomy 18 <1 in [address]. 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
--- OUTSIDE RECORDS SUMMARY | 2025-05-25 03:46 | XMS_ITS | Data Portability ---
Author Organization [place] [facility] [place] [facility] - [facility] Address [address] [place] [address] Assessment Encounter Date Assessment Date Assessment LastModified [...] Name and Address Organization Details Recorded Time [id number]/[id number] Excision of Wart completed Robert Foreman [facility] [place], [address] 07/03/2023 12:47:37 section completed Patience Espinal [facility] 07/03/2023 12:09:08 Imaging Results None recorded. Procedure [...] Updated DateTime 07/03/2023 165.1 cm Patience Espinal [facility] 07/03/2023 12:08:12 Date Recorded Body height Body mass index (BMI) Body weight Provider Name and Address Organization Details Last Updated DateTime 07/17/2023 165.1 cm 30 kg/m2 69317.63 g Zena Vail [facility] 07/17/2023 11:29:33 Social History Question Answer Notes LastModified by Organizat ion Details LastModified Time Tobacco Smoking Status Never Smoker Patience Espinal alessia [facility] 07/03/2023 12:08:47 Size Of Shoes 10 Information not available 07/03/2023 Sex: Unknown Functional Status Question Answer Note LastModified by Organizat ion Details LastModified Time Do you use any illicit or recreational drugs? No [email or web address] Information not available 07/17/2023 Do you or have you ever used any other forms of tobacco or nicotine? No [email or web address] Information not available 07/17/2023 What is your level of alcohol consumption? Moderate Information not available 07/03/2023 What is your exercise level? None Information not available 07/03/2023 Mental Status None recorded. Family History Relationship Description Onset Age of this Age Resolved Age Notes LastModified by Organization Details LastModified Time Mother Malignant neoplastic disease Not available 2023 12:08:37 Medical History Condition Response HIV or AIDS N Coronary Artery Disease N Gout N High Blood Pressure N Depression N Anxiety Disorder N Urinary Tract Infections N Arthritis N Ear Problems N Cancer N Eye Problems N Stroke N Stomach Problems N Rheumatoid Arthritis N Rash N Kidney Disease N Tuberculosis or TB N Heart Problems N Phlebitis or Venous Blood Clot N Migraines N Bleeding Disorder N Abuse of Alcohol or Drugs N Peripheral Vascular Disease N Sinus Conditions N Broken Bone N Thyroid Disorder N Hepatitis N Seizure Disorder N Menopause N Lung Condition N Pacemaker N Sciatica N High Cholesterol N Liver Disease N Ulcers on Legs or Feet N Clot in Lung or Pulmonary Embolism N Anemia N Back Pain N Neurologic Disease N Heart Attack ([place]) N Diabetes N Back injury N Dementia N Heart Disease N Osteoporosis N Gynecological HistoryNo gynecological history recorded. Obstetrics History GPAL:G 0 P 0 0 0 0 Past Encounters Encounter ID Performer Location Encounter Start Date Encounter Closed Date Diagnosis/Indication Diagnosis SNOMED-CT Code Diagnosis ICD10 Code Diagnosis IMO Codes Diagnosis Note [id number] [facility] [address] [place] [address] 5 07/03/2023 11:48:09 07/03/2023 12:23:36 Plantar wart of left foot [id number] B07.0 [id number] [facility] [address] [place] [address] 07/17/2023 11:22:48 07/17/2023 11:40:49 Plantar wart of left foot [id number] B07.0 Health Concerns Section Related Observation LastModified by Organization Detai ls LastModified Time None Recorded Concern Status LastModified by Organization Details LastModified Time None Recorded Advance Directives Directive None Recorded Payers Insurance Date Sequence Insurance Name Policy Number Policy Vyas Covered Member ID Vyas Member ID Guarantor Name 07/14/2023 1 [facility] Jacquie Morales [id number] Jacquie Morales Notes Date Note Type Note [...] it at home, andfiling it. Robert Foreman [address] [place] [address], [phone] [place] [address] 07/03/2023 12:52:23 07/17/2023 text/html Wart--Reported b y [...] and the wounds are closed Robert sienna [address] [place] [address], [phone] 07/17/2023 12:33:54 OBGyn Episode No OBEpisode recorded.
[2025-05-25] MEDS: ACETAMINOPHEN 500 MG TABLET 1000 MG PO (06:30)
[2025-05-25] MEDS: LACTATED RINGERS 1,000 ML 30 ML IV CONT (06:35)
[2025-05-25 07:01] LABS: BEDSIDEPREGUCG Negative (Negative)
--- NOTE | 2025-05-25 07:02 | P.PNAN_ITS ---
Anes - Initial Pre Proc Eval Procedure: Operation Date: 05/25/25 07:30 Proposed Procedures p Hysteroscopy Dilation and Curettage with Oliva Endometrial Ablation - Olvin Leiva MD Date/Time: 05/25/25 07:02 Surgeon: Olvin Leiva MD Pre Op Diagnosis: abnormal uterine bleeding Patient Data Age: 39 Gender: F Height: 1.65 m Weight: 96 kg Last Vital Signs Temp 36.5 C 05/23/25 06:50 Pulse 88 05/23/25 06:50 Resp 16 05/23/25 06:50 BP 147/93 H 05/23/25 06:50 Pulse Ox 98 05/23/25 06:50 O2 Del Method Room Air 05/23/25 06:50 Allergies Allergy/AdvReac Type Severity Reaction Status Date / Time No Known Allergies Allergy Verified 05/25/25 06:46 Home Medications ?Medication ?Instructions ?Recorded ?Confirmed ?Type multivitamin (One-A-Day Essential 1 tablet PO DAILY 05/23/25 History tablet) Laboratory Tests 05/25/25 06:47 POC Urine HCG, Qual Negative (Negative) Patient hx anesthesia problems: none Family hx anesthesia problems: none Results Review: All pre-operative results and documents have been reviewed as part of the pre- operative evaluation. [facility] Past Medical History Medical History BMI greater than 30 COVID-19 delivery delivered X2 09/23/14 TWINS Pre term females 3lbs 9oz and 3lbs 6oz 07/05/19 Full term male 8lbs 2oz Surgical History Surgical History H/O tubal ligation 2019 Family History Family History Mother Hypertension Breast cancer Grandparent Breast cancer Paternal Grandmother Father Anxiety Sibling No problems noted. 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 Gender identity (if verbalized by the patient): Female Sexual Orientation (if Verbalized by the Patient): Straight or Heterosexual Spiritual care concerns: No Agree to blood products: Yes Anes - Eval Final PreProcedure Day of Procedure 05/25/25 07:02 Patient weight: obese Heart: regular rate and rhythm Lungs: clear to auscultation Airway: Mallampati scale class II Neurological: alert and oriented Last oral intake: >/= 8 hours ASA classification: II Emergent: no Anesthetic plan: proceed Anesthesia type and monitoring: general GIVS and standard monitoring Results Review: All pre-operative results and documents have been reviewed as part of the pre- operative evaluation. Informed Consent: The patient's anesthetic plan and its attendant risks and benefits were discussed with the patient/family/POA. Questions were solicited and answers provided to the satisfaction of the patient/family/POA.
--- NOTE | 2025-05-25 07:30 | WPDHPUPDATE1 ---
History and Physical Update Update Date/Time: 05/25/25 07:30 History and Physical has been reviewed, including an updated exam of the patient. There are NO changes in the patient's condition. Risks, benefits, and alternatives have been discussed and questions answered. Patient agrees to proceed with procedure.
[2025-05-25] MEDS: ceFAZolin 2 GM in SODIUM CHLORIDE 0.9% IV 50 ML 100 ML IVPB (07:34)
[2025-05-25] MEDS: LIDOCAINE 1% LOCAL INJ 10 ML VIAL INFILTRATE (07:47)
--- NOTE | 2025-05-25 07:50 | SUR.OPER ---
Fluid Deficit 70
[2025-05-25 08:04] VITALS: BP 121/72; PULSE 66; RESP 14; O2SAT 99
[2025-05-25] MEDS: KETOROLAC 30 MG/ML VIAL (*BKC) IV PUSH (08:08)
--- NOTE | 2025-05-25 08:11 | W.PM.PROC2 ---
Procedure Note - Detailed Date of Procedure 05/25/25 Pre-op Diagnosis menorrhagia Post-op Diagnosis Same Procedure Performed Hysteroscopy with Oliva endometrial ablation Surgeon Olvin Leiva MD Anesthesia MAC and Local Indications Menorrhagia Findings Uterus sound to 9.5, cervical length 4.5, normal uterine cavity, good eschar noted. Description of Procedure After informed consent was obtained patient was taken to the operating room and adequate IV sedation was administered. Attention was turned to the vagina. Speculum was inserted. Single-tooth tenaculum placed on the anterior lip of the cervix. 8cc on 1% lidocaine was used for cervical block. The uterus was sounded to 9.5 cm. The cervix was dilated to an 8 Montgomery dilator. The cervical length was 4.5cm . The hysteroscope was inserted into the cavity. The findings were a normal uterine cavity. The hysteroscope was removed. The Oliva ablation instrument was inserted into the cavity. Cavity assessment was performed and confirmed intact. The ablation was enabled. After 120 seconds the Oliva stopped. The ablation instrument was removed. The hysteroscope was inserted and there was noted to be good eschar with the cavity. The hysteroscope was removed the single-tooth tenaculum was removed hemostasis was noted at the tenaculum site. Sponge count correct. The patient taken to recovery in stable condition. Estimated Blood Loss 5 Complications No immediate complications Condition Stable Disposition Same day [facility] Billing Surgery - Charge Forward: Surgery Billing
[2025-05-25 08:30] VITALS: BP 141/95; PULSE 62; O2SAT 97
[2025-05-25 09:00] VITALS: BP 144/95
== END 2025-05-25 09:17 | disposition home or self-care (01) ==
PROVIDERS: PCP Family Medicine; Visit Provider Obstetrics & Gynecology
PROC: 0U5B8ZZ Destruction of Endometrium, Via Natural or Artificial Opening Endoscopic (ICD-10-PCS; CPT 58563; principal; 2025-05-25 07:30)
DX: N92.0 Excessive and frequent menstruation with regular cycle (principal); E66.9 Obesity, unspecified; Z68.35 Body mass index [BMI] 35.0-35.9, adult; Z98.51 Tubal ligation status; Z80.3 Family history of malignant neoplasm of breast; Z82.49 Family history of ischemic heart disease and other diseases of the circulatory system
CPT/HCPCS: 58563; J0690; A9270; J1885; J2003; J2250; J2405; J2704; J3010; J7120